=== PATIENT | female | born 1975 | race Caucasian/White ===

== ENCOUNTER 2020-07-17 14:49 | Emergency (ER) | payer SELFPAY ==
[~2020-07-17] VITALS: Ht 160 cm; Wt 52.2 kg
--- NOTE | 2020-07-17 16:06 | NUR ---
PATIENTS "FRIEND" CAME TO [facility] AND STATED THEY WERE LEAVING. THEY FOUND SOMEONE TO DO AN MRI
--- NOTE | 2020-07-17 16:09 | Emergency Department Note ---
History of Present Illnes History of Present Illness Chief Complaint: Back Pain History of Present Illness This is a 44 year old female Chief Complaint Comment C/O OF LOWER MID BACK PAIN X 9 DAY THAT RADIATES TO LEFT SIDE. PATIENT AMBLE TO STAND AND WALK WITH ASSIST. SHE WENT TO HER PAIN SPECIALIST AND THEY SENT HER TO [facility] FOR MRI. SHE ALSO RAN OUT ON HER [place]CO BECAUSE SHE WAS DOUBLING UP ON THE MEDICATION FOR PAIN. 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 Any updates have been documented here. Past Medical History Recent Fever: No Clinical Suspicion of Infectio: No New/Unexplained Change in Ment: No Past Medical History: [place] Other Medical History: LOWER BULGING DISC PAIN MANAGEMENT Past Surgical History: T&A, Hernia Repair Other Surgery: BUNION HAMMER TOE HERNIA X 7 BREAST IMPLANT Review of Systems Review of Systems Constitutional: Reports no symptoms EENTM: Reports no symptoms Cardiovascular: Reports no symptoms Respiratory: Reports no symptoms Gastrointestinal: Reports no symptoms Genitourinary: Reports no symptoms Musculoskeletal: Reports as per HPI, Reports back pain Integumentary: Reports no symptoms Neurological: Reports no symptoms Psychological: Reports no symptoms Endocrine: Reports no symptoms Hematological/Lymphatic: Reports no symptoms Physical Exam Related Data Allergies: Coded Allergies: epinephrine (Verified Allergy, Severe, CARDIAC ARREST, 07/17/20) Uncoded Allergies: PCN (Allergy, Severe, THROAT SWELLING, 07/17/20) SULFA (Allergy, Intermediate, RASH, 07/17/20) Triage Vital Signs Vital Signs Date Time Temp Pulse Resp B/P (MAP) Pulse Ox O2 Delivery O2 Flow Rate FiO2 07/17/20 15:10 98.0 65 18 100/65 100 Room Air Vital signs reviewed: Yes Physical Exam CONSTITUTIONAL Constitutional: Present well-developed, Present well-nourished HENT HENT: Present normocephalic, Present atraumatic, Present oropharynx clear/moist, Present nose normal HENT L/R: Present left ext ear normal, Present right ext ear normal EYES Eyes: Reports PERRL, Reports conjunctivae normal NECK Neck: Present ROM normal PULMONARY Pulmonary: Present effort normal, Present breath sounds normal CARDIOVASCULAR Cardiovascular: Present regular rhythm, Present heart sounds normal, Present capillary refill normal, Present normal rate GASTROINTESTINAL Abdominal: Present soft, Present nontender, Present bowel sounds normal GENITOURINARY Genitourinary: Present exam deferred SKIN Skin: Present warm, Present dry MUSCULOSKELETAL Musculoskeletal: Present ROM normal, Present other (Able to stand with assistance, no bony tenderness, no saddle anesthesia, reflexes intact, sensation intact); Absent tenderness NEUROLOGICAL Neurological: Present alert, Present oriented x 3, Present no gross motor or sensory deficits PSYCHOLOGICAL Psychological: Present mood/affect normal, Present judgement normal Assessment & Plan Medical Decision Making MDM 44 y/.o F presents for back pain, acute on chronic. Exam shows no signs of cauda equina. Patient left prior to work up Assessment & Plan Final Impression: (1) Back pain Depart Disposition: ELOPED Last Vital Signs Date Time Temp Pulse Resp B/P (MAP) Pulse Ox O2 Delivery O2 Flow Rate FiO2 07/17/20 15:10 98.0 65 18 100/65 100 Room Air BAILEY GUAJARDO MD Jul 17, 2020 16:09
== END 2020-07-17 16:32 | disposition left against medical advice (07) ==
LOC: ER 15:55
DX: M54.5 Low back pain (principal)